=== PATIENT | female | born 1990 | race Caucasian/White ===

== ENCOUNTER 2025-01-10 16:58 | Inpatient (IN) | payer MEDICAID ==
[2025-01-10] MEDS ORDERED: Sodium Chloride 0.9% 10 ML Syringe FLUSH PRN (18:00)
[2025-01-10] MEDS ORDERED: Sodium Chloride 0.9% 2.5 ML Syringe FLUSH PRN (18:00)
[2025-01-10 18:30] LABS: MEAN PLATELET VOLUME 8.6 fL (9.4-12.3); NRBC ABSOLUTE 0.00 K/uL (0.00-0.02); NRBC PERCENT 0.0 /100WBC (0.0-0.2); PLATELET COUNT,PLT 245 K/uL (150-400); RED BLOOD CELL COUNT 4.67 M/uL (4.10-5.30); WHITE BLOOD CELL COUNT,WBC 5.26 K/uL (3.9-11.3)
[2025-01-10] MEDS: cefTRIAXone 2 GM in Water For Injection, Sterile 20 ML IVPUSH ONE (18:39)
[2025-01-10] MEDS: methylPREDNISolone Sodium Succinate 125 MG/2 ML SDV IVPUSH ONE (18:39)
[2025-01-10 19:00] LABS: BAND ABSOLUTE MAN 0.37; BAND PERCENT MAN 7 %; LACTIC ACID 0.8 mmol/L (0.4-2.0); LYMPHOCYTES ABSOLUTE MAN 0.58 K/uL (1.00-4.80); LYMPHOCYTES PERCENT MAN 11 % (24-44); MONOCYTES ABSOLUTE MAN 0.11 K/uL (0.00-0.80); MONOCYTES PERCENT MAN 2 % (0-8); SEG NEUTROPHILS ABSOLUTE MAN 4.21 K/uL (1.80-7.70); SEG NEUTROPHILS PERCENT MAN 80 % (41-71)
[2025-01-10 19:07] LABS: A/G RATIO 0.8 (0.9-1.6); ALANINE AMINOTRANSFERASE,ALT 135.0 IU/L (14-63); ASPARTATE AMNIOTRANSFERASE,AST 84.0 IU/L (15-37); BILIRUBIN TOTAL 0.7 mg/dL (0.2-1.0); BLOOD UREA NITROGEN,BUN 5.0 mg/dL (7.0-18.0); CARBON DIOXIDE,CO2 24.1 mmol/L (21.0-32.0); CHLORIDE,CL 91.0 mmol/L (98-107); CREATININE 0.9 mg/dL (0.6-1.0); EST CRCL DRUG DOSING (CG) 87.27 mL/min; GLUCOSE RANDOM 125.0 mg/dL (74-106); POTASSIUM,K 3.1 mmol/L (3.5-5.1); PROTEIN TOTAL,TP 7.1 g/dL (6.4-8.2); SODIUM,NA 125.0 mmol/L (136-145)
[2025-01-10 19:10] LABS: ESTIMATED GFR 87.0 mL/min (>60)
[2025-01-10 19:45] LABS: GLUCOSE,URINE NEGATIVE (NEGATIVE); OCCULT BLOOD,URINE TRACE-LYSED (NEGATIVE)
[2025-01-10 19:47] LABS: APPEARANCE,URINE SLT CLOUDY
[2025-01-10 19:56] LABS: EPITHELIAL CELLS,URINE OCCASIONAL (NONE-FEW)
[2025-01-10 20:19] LABS: BASE EXCESS ARTERIAL -0.2 (-2.0-3.0); BICARBONATE,ARTERIAL 22 mEq/L (21-28); PCO2 ARTERIAL 29 mmHG (35-45); PO2 ARTERIAL 112 mmHG (83-108)
[2025-01-10] MEDS: Iopamidol 755 Mg/ML 100 ML Bottle IVPUSH ONE (20:38)
[2025-01-10] MEDS: Calcium Gluconate 10% 1 GM/10 ML SDV IVPUSH ONE (22:12)
[2025-01-10] MEDS: Potassium Chloride 10% 20 MEQ/15 ML Soln 15 ML UD Cup PO ONE (22:12)
[2025-01-10] MEDS: Magnesium Sulfate 2 GM/50 mL 2 GM in Premix Bag 1 BAG IV ONE (22:12)
[2025-01-10] MEDS: Ketorolac 30 MG/ML SDV IVPUSH ONE (22:13)
[2025-01-11] MEDS: Carboxymethylcellulose Sodium 0.5% Ophth Soln 0.4 ML UD Box of 30 EYEBOTH SCH ×2 (00:14→06:54)
[2025-01-11] MEDS: Phenol 1.4% Oral Spray 177 ML Bottle MUCMEM PRN (01:08)
[2025-01-11] MEDS: guaiFENesin 100 MG/5 ML Soln 5 ML UD Cup PO PRN (01:09)
[2025-01-11 06:50] LABS: MEAN PLATELET VOLUME 9.0 fL (9.4-12.3); NRBC ABSOLUTE 0.00 K/uL (0.00-0.02); NRBC PERCENT 0.0 /100WBC (0.0-0.2); PLATELET COUNT,PLT 251 K/uL (150-400); RED BLOOD CELL COUNT 4.89 M/uL (4.10-5.30); WHITE BLOOD CELL COUNT,WBC 4.04 K/uL (3.9-11.3)
[2025-01-11 07:10] LABS: BAND ABSOLUTE MAN 0.44; BAND PERCENT MAN 11 %; LYMPHOCYTES ABSOLUTE MAN 0.40 K/uL (1.00-4.80); LYMPHOCYTES PERCENT MAN 10 % (24-44); MONOCYTES ABSOLUTE MAN 0.20 K/uL (0.00-0.80); MONOCYTES PERCENT MAN 5 % (0-8); SEG NEUTROPHILS ABSOLUTE MAN 2.99 K/uL (1.80-7.70); SEG NEUTROPHILS PERCENT MAN 74 % (41-71)
[2025-01-11 07:16] LABS: A/G RATIO 0.7 (0.9-1.6); ALANINE AMINOTRANSFERASE,ALT 130.0 IU/L (14-63); ASPARTATE AMNIOTRANSFERASE,AST 73.0 IU/L (15-37); BILIRUBIN TOTAL 0.5 mg/dL (0.2-1.0); BLOOD UREA NITROGEN,BUN 6.0 mg/dL (7.0-18.0); CARBON DIOXIDE,CO2 24.7 mmol/L (21.0-32.0); CHLORIDE,CL 99.0 mmol/L (98-107); CREATININE 0.7 mg/dL (0.6-1.0); EST CRCL DRUG DOSING (CG) 112.2 mL/min; GLUCOSE RANDOM 153.0 mg/dL (74-106); POTASSIUM,K 4.4 mmol/L (3.5-5.1); PROTEIN TOTAL,TP 7.2 g/dL (6.4-8.2); SODIUM,NA 134.0 mmol/L (136-145)
[2025-01-11 07:20] LABS: ESTIMATED GFR 118.0 mL/min (>60)
[2025-01-11] MEDS: cefTRIAXone 2 GM in Water For Injection, Sterile 20 ML IVPUSH SCH ×3 (08:10→18:37)
[2025-01-11] MEDS: Benzocaine 20% Topical Spray UD MUCMEM SCH (16:45)
[2025-01-11] MEDS: methylPREDNISolone Sodium Succinate 40 MG/1 ML SDV IVPUSH SCH ×2 (17:13→19:54)
[2025-01-11] MEDS: methylPREDNISolone Sodium Succinate 125 MG/2 ML SDV IVPUSH ONE (19:53)
[2025-01-12 09:04] LABS: BASOPHILS ABSOLUTE AUTO 0.03 K/uL (0.00-0.20); BASOPHILS PERCENT AUTO 0.5 % (0.0-1.0); EOSINOPHILS ABSOLUTE AUTO 0.01 K/uL (0.00-0.45); EOSINOPHILS PERCENT AUTO 0.2 % (0.0-6.0); IMMATURE GRAN ABSOLUTE AUTO 0.02 K/uL (0.00-0.05); IMMATURE GRAN PERCENT AUTO 0.4 % (0.0-0.4); LYMPHOCYTES ABSOLUTE AUTO 0.82 K/uL (1.00-4.80); LYMPHOCYTES PERCENT AUTO 14.4 % (24.0-44.0); MEAN PLATELET VOLUME 8.9 fL (9.4-12.3); MONOCYTES ABSOLUTE AUTO 0.55 K/uL (0.00-0.80); MONOCYTES PERCENT AUTO 9.7 % (0.0-8.0); NEUTROPHILS ABSOLUTE AUTO 4.25 K/uL (1.80-7.70); NEUTROPHILS PERCENT AUTO 74.8 % (41.0-71.0); NRBC ABSOLUTE 0.00 K/uL (0.00-0.02); NRBC PERCENT 0.0 /100WBC (0.0-0.2); PLATELET COUNT,PLT 314 K/uL (150-400); RED BLOOD CELL COUNT 4.47 M/uL (4.10-5.30); WHITE BLOOD CELL COUNT,WBC 5.68 K/uL (3.9-11.3)
[2025-01-12 09:27] LABS: BLOOD UREA NITROGEN,BUN 5.0 mg/dL (7.0-18.0); CARBON DIOXIDE,CO2 26.6 mmol/L (21.0-32.0); CHLORIDE,CL 99.0 mmol/L (98-107); CREATININE 0.7 mg/dL (0.6-1.0); EST CRCL DRUG DOSING (CG) 112.2 mL/min; GLUCOSE RANDOM 131.0 mg/dL (74-106); POTASSIUM,K 4.3 mmol/L (3.5-5.1); SODIUM,NA 135.0 mmol/L (136-145)
[2025-01-12 09:30] LABS: ESTIMATED GFR 118.0 mL/min (>60)
[2025-01-13 05:02] LABS: BORDETELLA PARAPERT IS1001 Not Detected (Not Detected)
== END 2025-01-13 12:35 | disposition home or self-care (01) | DRG 194 ==
LOC: MW.ED 16:58 → MW.MS 22:02
PROVIDERS: ADMIT Internal Medicine; ATTEND Internal Medicine
PROC: 4A033R1 Measurement of Arterial Saturation, Peripheral, Percutaneous Approach (ICD-10-PCS; principal; 2025-01-10)
DX: B05.9 Measles without complication (principal); J18.9 Pneumonia, unspecified organism; A00-B99 Certain infectious and parasitic diseases; N30.00 Acute cystitis without hematuria; E87.1 Hypo-osmolality and hyponatremia; B18.1 Chronic viral hepatitis B without delta-agent; E86.0 Dehydration; G89.29 Other chronic pain; M54.2 Cervicalgia; F17.200 Nicotine dependence, unspecified, uncomplicated; R73.9 Hyperglycemia, unspecified; E87.6 Hypokalemia; E83.42 Hypomagnesemia; R74.01 Elevation of levels of liver transaminase levels
CPT/HCPCS: 36415; 36600; 70486; 70486-26; 71045; 71045-26; 71275; 71275-26; 80048; 80053; 81001; 82803; 83036; 83605; 83735; 85025; 85379; 86735; 86765; 87040; 87086; 87486; 87581; 87633; 87798; 93005; 96361; 96374; 96375; 99222; 99231; 99239; 99285; 99285-25; A9270-GY; J0612; J0696; J1885; J2919; J3475; J3490; J7030; Q9967